=== PATIENT | female | born 1975 | race Two or more races ===

== ENCOUNTER 2020-07-27 07:03 | Day surgery (SDC) | payer OTHER ==
[~2020-07-27 07:03] MED LIST: ASA81 MG PO; DIOVAN HCT 1601 EACH PO; LAMICT PO
== END 2020-07-27 13:10 | disposition home or self-care (01) ==
LOC: CIR.AMB 07:03
PROVIDERS: ATTEND Obstetrics & Gynecology
DX: N84.0 Polyp of corpus uteri (principal); N72 Inflammatory disease of cervix uteri